=== PATIENT | female | born 1975 | race Caucasian/White ===

== ENCOUNTER 2017-05-08 15:51 | Outpatient (CLI) | payer OTHER, MEDICAID ==
[~2017-05-08] VITALS: Ht 149.9 cm; Wt 73.1 kg
[2017-05-08 16:40] VITALS: Ht 149.9 cm; Wt 73.1 kg
[2017-05-08 16:42] VITALS: BP 130/79; PULSE 60; RESP 18
--- NOTE | 2017-05-08 17:02 | RADRPT ---
PROCEDURE: US OB biophysical profile. CLINICAL INDICATION: decreased movements, contractions TECHNIQUE: Multiple sonographic images of the pelvis were obtained. The images were reviewed on a PACS workstation. COMPARISON: No prior studies are available for comparison. FINDINGS: There is a single viable intrauterine gestation. Cardiac activity is present with 134 beats per min [place]. There is a vertex presentation. The placenta is fundal. There is no evidence of placental abruption. There is a normal amount of amniotic fluid with an JOSE MARTIN = 18.3 cm. Biophysical profile: movement 2/2 tone 2/2. breathing 2/2 JOSE MARTIN 2/2 Total 05/14 RPTAT: AA . IMPRESSION: Normal biophysical profile. . .Richard Humphreys MD, Date Time Electronically viewed and signed by .Richard Humphreys MD, MD on 05/08/2017 17:01 .S/
[2017-05-08] MEDS ORDERED: ACETAMINOPHEN 500 MG TAB PO STA (18:28)
--- NOTE | 2017-05-08 18:54 | TRIAGE ---
OB Triage Datetime Report Generated by CPN: 05/08/2017 18:54 Datetime: 05/08/2017 18:00 Stage of : OB Triage Maternal Assessment Level of Consciousness: Fully Conscious Labor Evaluation Frequency: 5UC/HR Monitor Mode: External Duration (sec)2399: 80-230 Quality: Moderate Resting Tone [place]: Relaxed Heart Rate FHR Baseline Rate: 150 Monitor Mode: External US Variability: Moderate 6-25 bpm Accelerations: 15X15 Decelerations: None Pain Assessment Pain Scale: 3 Pain Presence: Intermittent Pain Type: Cramping Pain Location: Abdomen Pain Goal: 3 Pain Relief Measures: Comfort Measures Membrane Status: Intact Vaginal Bleeding: None Datetime: 05/08/2017 17:17 Vaginal Exam Dilatation (cms): 0.0 Exam By: KHEMANI Datetime: 05/08/2017 17:00 Stage of : OB Triage Maternal Assessment Level of Consciousness: Fully Conscious Labor Evaluation Frequency: 7-12 Monitor Mode: External Duration (sec)2399: 80-230 Quality: Moderate Resting Tone [place]: Relaxed Heart Rate FHR Baseline Rate: 130 Monitor Mode: External US Variability: Moderate 6-25 bpm Accelerations: 15X15 Decelerations: None Category: Category I Pain Assessment Pain Scale: 3 Pain Presence: Intermittent Pain Type: Cramping Pain Location: Abdomen Pain Goal: 3 Pain Relief Measures: Comfort Measures Membrane Status: Intact Vaginal Bleeding: None Datetime: 05/08/2017 16:11 Assessment Type: Triage Maternal Assessment Level of Consciousness: Fully Conscious DTR's/Clonus: DTRs 2+; No Clonus Headache: Denies Blurred Vision: No Respiratory Effort: Unlabored; Regular Rhythm; Equal Expansion Breath Sounds, Left: Clear and Equal Breath Sounds, Right: Clear and Equal Nausea/Vomiting: Denies RUQ Epigastric Pain: Denies Lower Extremities Edema: Bilateral Lower Extremities Degree: 1+ Upper Extremities Edema: None Degree: None Facial Edema: None Fall Risk Assessment History of Falling: (0) No Secondary Diagnosis: (0) No Ambulatory Aid: (0) Bedrest/Nurse Assist IV Therapy: (0) No Gait: (0) Normal/Bedrest/Immobile Mental Status: (0) Oriented to Own Ability Fall Score: 0 Fall Risk Score Definition: No Risk: No action required Datetime: 05/08/2017 16:10 Time of Arrival: 05/08/2017 15:44 EGA: 38.5 Arrived By: Wheelchair Arrived From: Home Chief Complaint: PT HERE C/O UC'S Movement: Present Contractions: Irregular Time Contractions Began: 05/08/2017 08:00 Rupture of Membranes: Denies Vaginal Bleeding: None Vaginal Discharge: Denies Recent Sexual Intercouse: Denies Abdominal Trauma: Not Applicable Patient Complaints: Contractions; Cramping; Back Pain Time Provider Notified: 05/08/2017 16:15 Provider Notified: LEIDY Initial Plan: SVE, BPP Datetime: 05/08/2017 16:07 Monitor Mode: External Monitor Mode: External US
--- NOTE | 2017-05-08 23:47 | PN ---
Triage Information Date/Time May 08, 2017 Reason for visit: Uterine contractions Weeks of Gestation 38 weeks and 5 days /Para 2 para 1 Diabetes: none Hypertention: none Additional information 41-year-old with IUP at 38 weeks and 5 days presented with complaint of contractions and small amount of bleeding. She denies any decreased movement leaking of fluid. Has no other complaints. Denies any compensation during her course. Rh+. Objective Vital Signs Date Time Temp Pulse Resp B/P Pulse Ox O2 Delivery O2 Flow Rate FiO2 05/08/17 16:42 97.3 60 18 130/79 95 Room Air Heart Rate: 130's Contractions: < 5 Minutes Apart Exam General appearance: Alert and oriented 4. Patient appears to be in mild to moderate distress. Abdomen: Soft, gravid, fundal height consistent with gestational age. No uterine tenderness NST: Category 1 Contractions every 4-5 minutes Cervical exam closed long and high Ultrasound: No evidence of previa or abruption Patient had been observed after hydration and repeat exam did not show any cervical change Results/Medications Imaging Results PROCEDURE: US OB biophysical profile. CLINICAL INDICATION: decreased movements, contractions TECHNIQUE: Multiple sonographic images of the pelvis were obtained. The images were reviewed on a PACS workstation. COMPARISON: No prior studies are available for comparison. FINDINGS: There is a single viable intrauterine gestation. Cardiac activity is present with 134 beats per minute. There is a vertex presentation. The placenta is fundal. There is no evidence of placental abruption. There is a normal amount of amniotic fluid with an JOSE MARTIN = 18.3 cm. Biophysical profile: movement 2/2 tone 2/2. breathing 2/2 JOSE MARTIN 2/2 Total 05/14 RPTAT: AA . IMPRESSION: Normal biophysical profile. Disposition: Discharge Assessment/Plan IUP at 38 weeks and 5 days False labor pain Scant bleeding. Likely from the cervix Rh+ No evidence of labor or abruption testing reassuring DC home Follow-up within 24-48 hours with OB office Strict labor precaution and kick count discussed Return to triage if she has recurrence of bleeding, worsening of contractions decreased movement or any other concerns.LEIDY MARYAM MD May 08, 2017 23:47
== END 2017-05-08 18:49 | disposition home or self-care (01) ==
LOC: OBT 15:51 → L-D 15:53 → OBT 18:49
PROVIDERS: ATTEND Obstetrics & Gynecology
DX: O47.1 False labor at or after 37 completed weeks of gestation (principal); O36.8130 Decreased fetal movements, third trimester, not applicable or unspecified; O09.523 Supervision of elderly multigravida, third trimester; Z3A.38 38 weeks gestation of pregnancy; O46.93 Antepartum hemorrhage, unspecified, third trimester; O26.893 Other specified pregnancy related conditions, third trimester; Z67.90 Unspecified blood type, Rh positive
CPT/HCPCS: 76815; 76818; 86850; 86900; 86901; G0463

== ENCOUNTER 2017-05-09 07:12 | Inpatient (IN) | END 2017-05-11 18:38 | disposition home or self-care (01) | DRG 775 | DX: O70.1 Second degree perineal laceration during delivery (principal); Z37.0 Single live birth; Z3A.38 38 weeks gestation of pregnancy ==